=== PATIENT | male | born 1995 | race Native Hawaiian/Other Pacific Islander ===

== ENCOUNTER 2021-04-10 14:06 | Emergency (ER) | payer OTHER ==
[2021-04-10] MEDS ORDERED: TETANUS,DIPH,PERTUSS(ACELL) VACCINE 0.5 ML SYRINGE IM ONE (15:27)
--- NOTE | 2021-04-10 15:28 | Event Note ---
ED Screening Note Date of service: 04/10/21 Time: 15:27 ED Screening Note: 25-year-old [id number] male patient presents to emergency department with complaints of a laceration to his right index finger occurring earlier today. Patient states he was working outside when he accidentally cut his finger with a brick sawblade. Patient does not believe he has ever had a tetanus immunization. General: Awake, appropriately interactive, no acute distress. Neck: Supple. Full range of motion intact. Cardiovascular: Normal peripheral perfusion. Pulmonary: No respiratory distress. Patient is speaking normally without use of accessory muscles. Skin: Laceration to right index finger involving skin and subcutaneous tissue. Good hemostasis. Neurological: No facial asymmetry. Speech is clear. Follows commands. Patient is alert and oriented. Musculoskeletal: Moves all four extremities spontaneously with normal range of motion. Psych: Cooperative. Appropriate mood and affect. X-rays and tetanus ordered. I have greeted and performed a focused rapid initial assessment of this patient. A comprehensive ED assessment and evaluation of the patient, analysis of all test results, and completion of the medical decision-making process will be conducted by additional ED providers. This initial assessment/diagnostic orders/clinical plan/treatment(s) is/are subject to change based on patients health status, clinical progression and re-assessment. Further treatment and workup at subsequent clinical provider's discretion. Patient/guardian urged not to elope from the ED as their condition may be serious if not clinically assessed and managed.
--- NOTE | 2021-04-10 16:20 | Emergency Department Report ---
Upper Extremity - HPI Chief Complaint: Wound/Laceration Stated Complaint: BRICK SAW ACCIDENT Time Seen by Provider: 04/10/21 16:15 Upper Extremity: Right Index Finger Occurred When: Today Mechanism: Other (Patient excellently cut his right index finger while using a brick saw) Symptoms: Yes Pain with Movement, Yes Swelling, Yes Laceration or Abrasion (Right index finger), No Deformity, No Limited Range of Movement, No Numbness, No Weakness, No Bruising/Ecchymosis Other History: Patient states that around 11 AM he excellently cut his right i ndex finger while using a brick saw. Patient states that this occurred at home. He states that he came in to see if the wound need stitches. He denies any pain to the wound currently. He denies any numbness or tingling. He is not up-to-date on his tetanus. He is right-hand dominant. ED Review of Systems ROS: Stated complaint: BRICK SAW ACCIDENT Other details as noted in HPI Comment: All other systems reviewed and negative Musculoskeletal: arthralgia Skin: other (Laceration right index finger) ED Past Medical Hx - Past Medical History Previous Medical History?: No - Surgical History Past Surgical History?: No - Social History Smoking Status: Never Smoker Substance Use Type: None Upper Extremity Exam - Exam General: Vital signs noted. No distress. Alert and acting appropriately. Head and Torso: No HEENT Abnormality, No Neck Tenderness, No Chest/Lungs Abnormality, No Abdominal Tenderness, No Back Tenderness Shoulder Exam: Yes Normal Range of Motion in Shoulder, No Shoulder Tenderness, No Clavicle Tenderness, No Shoulder Deformity, No AC Joint Tenderness Arm Exam: No Arm/Humerus Tenderness, No Arm Deformity Elbow: Yes Normal Range of Motion in Elbow, No Elbow Tenderness, No Elbow Deformity Forearm: No Forearm Tenderness, No Forearm Deformity, No Pain with Pronation, No Pain with Supination Wrist: Yes Normal ROM in Wrist, No Wrist Tenderness, No Wrist Deformity, No Snuffbox Tenderness, No Pain with Axial Thumb Compression Hand: Yes Digit Tenderness (Mild tenderness palpation around the wound noted to the distal aspect of the right index finger), Yes Normal ROM in Digit(s), No Hand Tenderness, No Hand Deformity, No Digit(s) Deformity, No Tendon Dysfunction CMS Exam: Yes Broken Skin (Patient has a superficial laceration, with single skin flap noted to the distal aspect of the right index finger; measuring about 4cm ), Yes Normal Distal Pulses, Yes Normal Capillary Refill, Yes Normal Distal Sensation ED Course Vital Signs 04/10/21 14:23 Temperature 98.5 F Pulse Rate 79 Respiratory 18 Rate Blood Pressure 121/62 [Right] O2 Sat by Pulse 98 Oximetry - Laceration /Wound Repair Right Distal Finger Wound Location: upper extremity (right distal index finger ) Wound Explored: clean Irrigated w/ Saline (ccs): 150 Betadine Prep?: Yes Anesthesia: 1% Lidocaine Volume Anesthetic (ccs): 6 (Digital block ) Wound Debrided: minimal Wound Repaired With: sutures Suture Size/Type: 4:0, nylon Number of Sutures: 7 Layer Closure?: No Sterile Dressing Applied?: Yes Progress: Patient tolerate procedure well without complications. - Nerve Block Consent Obtained: verbal consent Time Out Performed: No Local Anesthetic Used: Lidocaine 1% Amount of anesthesia used: 6 Side: right Nerve Blocks: digital Procedure Successful: Yes Complications: none Patient Tolerated Procedure: well, no complications ED Medical Decision Making - Radiology Data Radiology results: report reviewed Patient: JOSEPH REY MR#: [id number] 04 : 1995 Acct:[id number] Age/Sex: 25 / M ADM Date: 04/10/21 Loc: ED Attending Dr: Ordering Physician: MISAEL LUND Date of Service: 04/10/21 Procedure(s): XR hand 3+V RT Accession Number(s): [id number] cc: MISAEL LUND Fluoro Time In Minutes: XR hand 3+V RT INDICATION / CLINICAL INFORMATION: index finger laceration; hand vs. brick saw blade. COMPARISON: None available. FINDINGS: BONES/JOINT(S): No acute fracture or subluxation. No significant degenerative changes. SOFT TISSUES: No radiopaque foreign bodies. ADDITIONAL FINDINGS: None. Signer Name: Lucho Ingram MD Signed: 04/10/2021 4:45 PM Workstation Name: [id number] Transcribed By: KAREN Dictated By: Lucho Ingram MD Electronically Authenticated By: Lucho Ingram MD Signed Date/Time: 04/10/211644 DD/ 44 TD/TT: Critical care attestation.: If time is entered above; I have spent that time in minutes in the direct care of this critically ill patient, excluding procedure time. ED Disposition Clinical Impression: Finger laceration Disposition: DC-01 TO HOME OR SELFCARE Is pt being admited?: No Does the pt Need Aspirin: No Condition: Stable Instructions: Laceration Care, Adult, Sutures, [place], or Adhesive Wound Closure, [id number] Additional Instructions: Do not use alcohol or peroxide to clean the wound. Keep it clean daily with soap and water. After you wash the wound briefly with soap and water you can dry well and apply a thin layer of Neosporin and then cover it. Do this daily until its time to have the sutures removed which will be in the next 12 to 14 days. You can return here or follow-up with your primary care doctor to have sutures removed. You can take Tylenol and ibuprofen from [id number] as needed for pain. Return immediately to the ER if wound appears to be infected which includes increased redness, pain, pus drainage, fever or chills. Referrals: EDISON OBRIEN MD [Staff Physician] - 03/21/22 (For Suture removal ) Forms: Work/School Release Form(ED) Time of Disposition: 16:57
[2021-04-10] MEDS ORDERED: LIDOCAINE (1%) 10 MG/1 ML VIAL 20 ML MDV INFILTRATI ONE (16:21)
--- NOTE | 2021-04-10 16:50 | XRay Report ---
XR hand 3+V RT INDICATION / CLINICAL INFORMATION: index finger laceration; hand vs. brick saw blade. COMPARISON: None available. FINDINGS: BONES/JOINT(S): No acute fracture or subluxation. No significant degenerative changes. SOFT TISSUES: No radiopaque foreign bodies. ADDITIONAL FINDINGS: None. Signer Name: Lucho Ingram MD Signed: 04/10/2021 4:45 PM Workstation Name: [id number]
[2021-04-10] MEDS ORDERED: NEOMY 3.5 MG/BACIT 400 UNITS/POLY B 5000 UNITS/GM OINT PACKET TP ONE (16:55)
[2021-04-10 18:33] VITALS: BP 134/77
== END 2021-04-10 18:33 | disposition home or self-care (01) ==
LOC: ED 14:06
DX: S61.210A Laceration without foreign body of right index finger without damage to nail, initial encounter (principal); W26.8XXA Contact with other sharp object(s), not elsewhere classified, initial encounter; Y93.89 Activity, other specified; Y92.009 Unspecified place in unspecified non-institutional (private) residence as the place of occurrence of the external cause; Y99.8 Other external cause status
CPT/HCPCS: 12002; 73130; 90471; 90715; 99283; A6250